=== PATIENT | female | born 1995 | race Caucasian/White ===

== ENCOUNTER 2017-04-19 11:16 | Emergency (ER) | payer BC ==
[~2017-04-19] VITALS: Ht 170.2 cm; Wt 58.4 kg
[2017-04-19 11:20] VITALS: TEMP 36.6; Ht 170.2 cm; Wt 58.4 kg
--- NOTE | 2017-04-19 11:36 | EMERGENCY ROOM VISIT NOTE ---
History First contact with patient: 11:25 Chief Complaint: SHORTNESS OF BREATH Stated Complaint: PURPLE SKIN, SOB Nursing Triage Summary: pt reports being short of breath for 2 months pt noticed over the weekend that "my skin is turning blue and I cant take deep breaths" pt reports bluish color appears around mouth and lips History of Present Illness The patient is a 21 year old female who presents to the Emergency Room via private vehicle with complaints of "purple skin, shortness of breath". The patient states that she has been feeling short of breath for the past 2 months. There is no inciting incident, trauma or other event but does note that she believes it could be related to stress while at school here at [employer]. She states that over the weekend she noted that when she was in a cold the skin around her lips were turning blue and around her mouth. She came here over concern because of the shortness of breath and now the perioral cyanosis. She denies any recent fevers, chills, cough, medical problems, chest pain, heart troubles, history of blood clots. She states that she does take control and recently flew to [facility] last week. Review of Systems A complete 10-point Review of Systems was discussed with the patient, with pertinent positives and negatives listed in the History of Present Illness. All remaining Review of Systems questions can be considered negative unless otherwise specified. Past Medical/Surgical History No pertinent. Family History No pertinent. Social History Smoking Status: Never Smoker Patient is a [employer] student and lives locally. Current/Historical Medications Scheduled Control Pills ( Control Pills), 1 TAB PO DAILY Physical Exam Vital Signs Date Time Temp Pulse Resp B/P (MAP) Pulse Ox O2 Delivery O2 Flow Rate FiO2 04/19/17 16:36 87 18 122/75 98 Room Air 04/19/17 16:20 86 04/19/17 15:27 86 18 129/77 97 Room Air 04/19/17 13:54 84 16 130/87 99 Room Air 04/19/17 12:32 73 16 146/77 100 Room Air 04/19/17 12:22 71 04/19/17 11:47 79 18 146/91 98 Room Air 04/19/17 11:46 97 Room Air 04/19/17 11:20 36.6 77 20 145/89 98 Room Air Physical Exam VITAL SIGNS - Vital signs and nursing notes were reviewed. Stable. Non- tachycardic and is saturating well on room air 98%. GENERAL -21-year-old female appearing her stated age who is in no acute distress. Communicates well with provider and answers questions appropriately. SKIN - Without rashes. There is no purple hue to the skin at this time. Good capillary refill. HEAD - NC/AT. EYES - PERRL with EOMI bilaterally. Sclera anicteric. No hyphema. EARS - No deformities of external structures noted on gross examination bilaterally. No pain elicited with palpation of the tragus bilaterally. External auditory canals without discharge or otorrhea. Tympanic membranes pearly medina without retraction or bulging. No fluid or purulent material visualized behind the TM. Handle of malleus, umbo, cone of light, pars tensa/ flaccid all easily visualized. NOSE - Midline and without cyanosis. No epistaxis or purulent drainage noted. Septum midline without deviation or septal hematoma noted. MOUTH/OROPHARYNX - Without perioral cyanosis. Buccal mucosa pink and moist and without leukoplakia. Tongue midline with equal elevation of palate bilaterally. No tonsillar hypertrophy, erythema, or exudates noted. Fair dentition noted. NECK - Neck with FROM. Supple to palpation. No meningismus. LUNGS - Chest wall symmetric without accessory muscle use, intercostals retractions, or central cyanosis. Normal vesicular breath sounds CTA B/L. No wheezes, rales, or rhonchi appreciated. CARDIAC - RRR with S1/S2. No murmur, rubs, or gallops appreciated. EXTREMITIES - No clubbing or peripheral cyanosis. No pretibial edema present. +3 /5 radial, posterior tibial, and dorsalis pedis pulses palpated throughout. +5/ 5 strength noted in UE/LE bilaterally. NEUROLOGIC - Cranial nerves II through XII grossly intact. PSYCH - A&Ox3 and cooperates fully with examiner. Pt is very pleasant and interacts well with examiner. Medical Decision & Procedures ER Provider Diagnostic Interpretation: CHEST ONE VIEW PORTABLE HISTORY: 21 years-old Female Dyspnea, perioral cyanosis acute dyspnea COMPARISON: None available TECHNIQUE: Portable upright AP view of the chest FINDINGS: Cardiomediastinal and hilar silhouettes are within normal limits. There is no pneumothorax, pleural effusion, focal airspace consolidation or overt pulmonary edema. Bones of the chest appear grossly intact. Partially imaged levoscoliosis of the lumbar spine. IMPRESSION: 1. No acute cardiopulmonary process. 2. Lumbar spine levoscoliosis. The above report was generated using voice recognition software. It may contain grammatical, syntax or spelling errors. Electronically signed by: Cristiano David M.D. 04/19/2017 12:06 PM Dictated Date/Time: 04/19/2017 12:05 PM [~ rep ct add3]] (CHEST FOR PE) ANGIO WITH CT DOSE: 197.17 mGy.cm HISTORY: 21 years-old Female presents with acute shortness of breath with skin discoloration TECHNIQUE: Multiple CTA images of the chest were obtained after the intravenous administration of 92 ml Optiray 320. Coronal and sagittal MIPS were obtained from the axial data set and were submitted for review. A dose lowering technique was utilized adhering to the principles of ALARA. COMPARISON: Chest radiograph of same day. FINDINGS: CTA: There is adequate opacification of the pulmonary arteries to the level of the subsegmental branches without convincing evidence of acute pulmonary embolism. The distal subsegmental branches however are suboptimally evaluated secondary to respiratory motion. The thoracic aorta is normal in both course and caliber without dissection or aneurysm. There is a contrast-filled tubular structure measuring 1.6 x 0.3 x 0.3 cm in greatest dimension extending from the aortic isthmus towards the main pulmonary artery as seen on image 173 series 4, image 57 series 401 and lastly image [address] CHEST: No dominant thyroid nodule is seen. No pathologically adenopathy by CT size criteria. Mild residual thymic tissue of the anterior mediastinum There is no pneumothorax, pleural effusion or focal airspace consolidation. 2 mm noncalcified pulmonary nodule of the right lung apex is statistically benign. Central airways are patent. The imaged upper abdominal structures are normal. The osseous structures appear intact. IMPRESSION: 1. No acute intrathoracic abnormality identified. No acute aortic pathology or evidence of pulmonary thromboembolic disease. 2. 1.6 x 0.3 x 0.3 cm contrast-filled tubular structure extending from the aortic isthmus towards the main pulmonary artery is compatible with a small to moderate-sized patent ductus arteriosus. Cardiology consultation with echocardiogram recommended. The above report was generated using voice recognition software. It may contain grammatical, syntax or spelling errors. Electronically signed by: Cristiano David M.D. 04/19/2017 1:17 PM Dictated Date/Time: 04/19/2017 1:06 PM [~ rep ct add3]] (CHEST FOR PE) ANGIO WITH CT DOSE: 197.17 mGy.cm HISTORY: 21 years-old Female presents with acute shortness of breath with skin discoloration TECHNIQUE: Multiple CTA images of the chest were obtained after the intravenous administration of 92 ml Optiray 320. Coronal and sagittal MIPS were obtained from the axial data set and were submitted for review. A dose lowering technique was utilized adhering to the principles of ALARA. COMPARISON: Chest radiograph of same day. FINDINGS: CTA: There is adequate opacification of the pulmonary arteries to the level of the subsegmental branches without convincing evidence of acute pulmonary embolism. The distal subsegmental branches however are suboptimally evaluated secondary to respiratory motion. The thoracic aorta is normal in both course and caliber without dissection or aneurysm. There is a contrast-filled tubular structure measuring 1.6 x 0.3 x 0.3 cm in greatest dimension extending from the aortic isthmus towards the main pulmonary artery as seen on image 173 series 4, image 57 series 401 and lastly image [address] CHEST: No dominant thyroid nodule is seen. No pathologically adenopathy by CT size criteria. Mild residual thymic tissue of the anterior mediastinum There is no pneumothorax, pleural effusion or focal airspace consolidation. 2 mm noncalcified pulmonary nodule of the right lung apex is statistically benign. Central airways are patent. The imaged upper abdominal structures are normal. The osseous structures appear intact. IMPRESSION: 1. No acute intrathoracic abnormality identified. No acute aortic pathology or evidence of pulmonary thromboembolic disease. 2. 1.6 x 0.3 x 0.3 cm contrast-filled tubular structure extending from the aortic isthmus towards the main pulmonary artery is compatible with a small to moderate-sized patent ductus arteriosus. Cardiology consultation with echocardiogram recommended. The above report was generated using voice recognition software. It may contain grammatical, syntax or spelling errors. Electronically signed by: Cristiano David M.D. 04/19/2017 1:17 PM Dictated Date/Time: 04/19/2017 1:06 PM Interpretation Summary * Name: MARIELY MONCADA Study Date: 04/19/2017 02:09 PM BP: 130/87 mmHg * Patient Location: [facility] HR: 98 * : 1995 (M/d/yyyy) Gender: Female Height: 67 in * Age: 21 yrs Ethnicity: CA Weight: 128 lb * Ordering Physician: Justin Randolph * eferring Physician: Self, Referred * Performed By: Jaelyn Christine RCS * * Reason For Study: DYSPNEA / PERIORAL CYANOSIS / EVAL FOR PDA * BSA: 1.7 m2 * -- Conclusions -- * Left ventricular systolic function is normal. * Normal chamber dimensions without objective evidence of pulmonary hypertension * A patent foramen ovale is present. * Doppler images through the aortic arch and pulmonary artery suggest left to right flow consistent with a patent ductus arteriosus * Shunt fraction was not determined on this study Procedure Details * A complete two-dimensional transthoracic echocardiogram was performed (2D, M-mode, Doppler and color flow Doppler). * A saline contrast injection was performed to assess for cardiac shunting. * The injection was performed through an intravenous line in the left arm. * The attending nurse who injected the saline contrast was KETAN ESQUEDA RN. * A total of 10 cc of agitated saline was given. Left Ventricle * The left ventricle is normal in size. * There is normal left ventricular wall thickness. * Left ventricular systolic function is normal. * Ejection Fraction = 55-60%. * Normal diastolic function * The left ventricular wall motion is normal. Right Ventricle * The right ventricle is normal in size and function. Atria * The left atrial size is normal. * Right atrial size is normal. * Injection of contrast documented an interatrial shunt. * A patent foramen ovale is present. Mitral Valve * The mitral valve anatomy is normal. * There is no mitral regurgitation noted. Tricuspid Valve * The tricuspid valve anatomy is normal. * There is trace tricuspid regurgitation. Aortic Valve * The aortic valve is normal in structure and function. * The aortic valve is trileaflet. * No hemodynamically significant valvular aortic stenosis. * There is no significant aortic regurgitation. Pulmonic Valve * The pulmonic valve is not well seen, but is grossly normal. Great Vessels * Doppler images through the aortic arch and pulmonary artery suggest left to right flow consistent with a patent ductus arteriosus Pericardium/Pleural * There is no pericardial effusion. Great Vessels * Normal inferior vena cava diameter and respiratory variation suggests normal central venous pressure. MMode 2D Measurements and Calculations IVSd 1.1 cm IVSs 1.3 cm LVIDd 3.5 cm LVIDs 2.5 cm LVPWd 1.1 cm LVPWs 1.1 cm IVS/LVPW 1.0 FS 28.6 % EDV(Teich) 51.7 ml ESV(Teich) 22.7 ml EF(Teich) 56.1 % EDV(cubed) 43.7 ml ESV(cubed) 15.9 ml EF(cubed) 63.6 % % IVS thick 11.7 % % LVPW thick -3.46 % LV mass(C)d 126.9 grams LV mass(C)dI 75.9 grams/m\\S\\2 LV mass(C)s 84.7 grams LV mass(C)sI 50.6 grams/m\\S\\2 SV(Teich) 29.0 ml SI(Teich) 17.3 ml/m\\S\\2 SV(cubed) 27.8 ml SI(cubed) 16.6 ml/m\\S\\2 Ao root diam 2.6 cm Ao root area 5.4 cm\\S\\2 LA dimension 1.5 cm LA/Ao 0.58 LVOT diam 1.8 cm LVOT area 2.6 cm\\S\\2 LVAd ap4 26.8 cm\\S\\2 LVLd ap4 7.5 cm EDV(MOD-sp4) 80.7 ml EDV(sp4-el) 81.2 ml LVAs ap4 17.2 cm\\S\\2 LVLs ap4 6.8 cm ESV(MOD-sp4) 37.2 ml ESV(sp4-el) 37.1 ml EF(MOD-sp4) 53.9 % EF(sp4-el) 54.3 % SV(MOD-sp4) 43.5 ml SI(MOD-sp4) 26.0 ml/m\\S\\2 SV(sp4-el) 44.1 ml SI(sp4-el) 26.4 ml/m\\S\\2 Doppler Measurements and Calculations Ao V2 max 158.8 cm/sec Ao max PG 10.1 mmHg Ao max PG (full) 3.7 mmHg ALEXIS(V,A) 2.0 cm\\S\\2 ALEXIS(V,D) 2.0 cm\\S\\2 LV V1 max PG 6.4 mmHg LV V1 max 126.7 cm/sec PA V2 max 119.1 cm/sec PA max PG 5.7 mmHg Laboratory Results 04/19/17 11:32 Red Blood Count 5.13, Mean Corpuscular Volume 90.6, Mean Corpuscular Hemoglobin 31.8, Mean Corpuscular Hemoglobin Concent 35.1, Mean Platelet Volume 9.8, Neutrophils (%) (Auto) 68.6, Lymphocytes (%) (Auto) 24.7, Monocytes (%) (Auto) 4.9, Eosinophils (%) (Auto) 1.3, Basophils (%) (Auto) 0.3, Neutrophils # (Auto) 9.32, Lymphocytes # (Auto) 3.36, Monocytes # (Auto) 0.66, Eosinophils # (Auto) 0.18, Basophils # (Auto) 0.04 04/19/17 11:32 Test 04/19/17 11:32 04/19/17 11:37 04/19/17 11:45 White Blood Count 13.59 K/uL (4.8-10.8) Red Blood Count 5.13 M/uL (4.2-5.4) Hemoglobin 16.3 g/dL (12.0-16.0) Hematocrit 46.5 % (37-47) Mean Corpuscular Volume 90.6 fL (80-100) Mean Corpuscular Hemoglobin 31.8 pg (25-34) Mean Corpuscular Hemoglobin Concent 35.1 g/dl (32-36) Platelet Count 272 K/uL (130-400) Mean Platelet Volume 9.8 fL (7.4-10.4) Neutrophils (%) (Auto) 68.6 % Lymphocytes (%) (Auto) 24.7 % Monocytes (%) (Auto) 4.9 % Eosinophils (%) (Auto) 1.3 % Basophils (%) (Auto) 0.3 % Neutrophils # (Auto) 9.32 K/uL (1.4-6.5) Lymphocytes # (Auto) 3.36 K/uL (1.2-3.4) Monocytes # (Auto) 0.66 K/uL (0.11-0.59) Eosinophils # (Auto) 0.18 K/uL (0-0.5) Basophils # (Auto) 0.04 K/uL (0-0.2) RDW Standard Deviation 42.9 fL (36.4-46.3) RDW Coefficient of Variation 13.0 % (11.5-14.5) Immature Granulocyte % (Auto) 0.2 % Immature Granulocyte # (Auto) 0.03 K/uL (0.00-0.02) Prothrombin Time 10.8 SECONDS (9.0-12.0) Prothromb Time International Ratio 1.0 (0.9-1.1) Activated Partial Thromboplast Time 25.6 SECONDS (21.0-31.0) Partial Thromboplastin Ratio 1.0 Anion Gap 10.0 mmol/L (3-11) Est Creatinine Clear Calc Drug Dose 94.0 ml/min Estimated GFR () 109.6 Estimated GFR (Non- 94.6 BUN/Creatinine Ratio 11.6 (10-20) Calcium Level 9.7 mg/dl (8.5-10.1) Total Bilirubin 0.7 mg/dl (0.2-1) Aspartate Amino Transf (AST/SGOT) 22 U/L (15-37) Alanine Aminotransferase (ALT/SGPT) 27 U/L (12-78) Alkaline Phosphatase 59 U/L (45-117) Troponin I < 0.015 ng/ml (0-0.045) Total Protein 8.7 gm/dl (6.4-8.2) Albumin 4.6 gm/dl (3.4-5.0) Globulin 4.1 gm/dl (2.5-4.0) Albumin/Globulin Ratio 1.1 (0.9-2) Thyroid Stimulating Hormone (TSH) 1.590 uIu/ml (0.300-4.500) Bedside D-Dimer > 450 ng/mlFEU (0-450) Urine Color YELLOW Urine Appearance CLEAR (CLEAR) Urine pH 5.0 (4.5-7.5) Urine Specific [place] 1.026 (1.000-1.030) Urine Protein NEG (NEG) Urine Glucose (UA) NEG (NEG) Urine Ketones NEG (NEG) Urine Occult Blood NEG (NEG) Urine Nitrite NEG (NEG) Urine Bilirubin NEG (NEG) Urine Urobilinogen NEG (NEG) Urine Leukocyte Esterase TRACE (NEG) Urine WBC (Auto) 5-10 /hpf (0-5) Urine RBC (Auto) 5-10 /hpf (0-4) Urine Hyaline Casts (Auto) 1-5 /lpf (0-5) Urine Epithelial Cells (Auto) >30 /lpf (0-5) Urine Bacteria (Auto) NEG (NEG) Urine Test NEG (NEG) Medical Decision Patient was seen in the hospital as above. She presents to us today with dyspnea 2 months as well as perioral protruding/cyanosis since this weekend. This is since she goes out". The chest pain is not worse with exertion. No significant medical history. IV access was initiated, and the above workup was performed. CBC revealed slight leukocytosis of 13.59. Hemoglobin high at 16.3. Coag study normal. D-dimer elevated. Patient metabolic panel reveal no evidence of kidney or liver failure. Protein high at 8.7. TSH normal. Troponin negative. EKG reveals normal sinus rhythm, right axis deviation. Urine reveals trace leukocytes, trace white blood cells, red blood cells and crit at 30 epithelial cells. Urine brings test is negative. Chest x-ray no acute process other than incidental findings. CTA does reveal questionable PDA. I was called by the radiologist who read the CT scan the patient's chest and we discussed the case. There is concern that there is indeed a patent ductus arteriosus identified in her heart. He recommended echocardiogram with cardiology consultation. I did call cardiology, and spoke with Dr. Tejada. He thought that the echocardiogram was a good idea and this was performed. This revealed a patent ductus arteriosus and patent foramen ovale. We discussed the patient case and felt that she was stable for outpatient management with a congenital family centered specialist. She is to follow with her family doctor for referral. I do not suspect any other emergent underlying process. It is important to note that I do not suspect that her perioral cyanosis and dyspnea for many emergent cause. I do not think that they're related to the findings of the heart. I believe that the perioral cyanosis is indeed just temperature change and likely vascular constriction. I believe that the dyspnea related to other etiologies but not suspect any emergent. Patient was educated upon today' s findings, educated upon worrisome symptoms which to return, had questions or purulent discharge, and was discharged home in good condition. In evaluation treatment this patient the following differential diagnoses were entertained: Congenital heart abnormality, FL, PE, bronchitis, pneumonia, pericarditis, among others. Impression Primary Impression: Shortness of breath Additional Impressions: PDA (patent ductus arteriosus) PFO (patent foramen ovale) Departure Information Dispostion Home / Self-Care Condition GOOD Referrals No Doctor, Assigned (PCP) Patient Instructions My [facility] [address] Additional Instructions You have been treated in the Emergency Department your shortness of breath and purple in around the mouth and fingertips. Laboratory results and imaging studies have ruled out any emergent causes for your symptoms which would warrant emergency admission or surgery. For pain control, you can use the following [id number] medicines: - Regular strength (325mg/tab) Tylenol (acetaminophen) 2 tabs every 4-6 hours as needed. Do not exceed 12 tablets in a 24 hour period. Avoid taking more than 3 grams (3000 mg) of Tylenol per day. This includes any other sources of acetaminophen you may take on a regular basis. - Regular strength (200 mg/tab) Advil (ibuprofen) 1-2 tabs every 4-6 hours as needed. Do not exceed a dose of 3200 mg per day. Drink plenty of water and stay well hydrated. As with any trip to the Emergency Department, you should follow-up with your Primary Care Provider from today's visit. I recommend follow-up with the family doctor and subsequently a congenital family centered specialist. Please take the ultrasound findings as well as the x-ray and CAT scan to your family doctor. CHEST ONE VIEW PORTABLE HISTORY: 21 years-old Female Dyspnea, perioral cyanosis acute dyspnea COMPARISON: None available TECHNIQUE: Portable upright AP view of the chest FINDINGS: Cardiomediastinal and hilar silhouettes are within normal limits. There is no pneumothorax, pleural effusion, focal airspace consolidation or overt pulmonary edema. Bones of the chest appear grossly intact. Partially imaged levoscoliosis of the lumbar spine. IMPRESSION: 1. No acute cardiopulmonary process. 2. Lumbar spine levoscoliosis. The above report was generated using voice recognition software. It may contain grammatical, syntax or spelling errors. Electronically signed by: Cristiano David M.D. 04/19/2017 12:06 PM Dictated Date/Time: 04/19/2017 12:05 PM [~ rep ct add3]] (CHEST FOR PE) ANGIO WITH CT DOSE: 197.17 mGy.cm HISTORY: 21 years-old Female presents with acute shortness of breath with skin discoloration TECHNIQUE: Multiple CTA images of the chest were obtained after the intravenous administration of 92 ml Optiray 320. Coronal and sagittal MIPS were obtained from the axial data set and were submitted for review. A dose lowering technique was utilized adhering to the principles of ALARA. COMPARISON: Chest radiograph of same day. FINDINGS: CTA: There is adequate opacification of the pulmonary arteries to the level of the subsegmental branches without convincing evidence of acute pulmonary embolism. The distal subsegmental branches however are suboptimally evaluated secondary to respiratory motion. The thoracic aorta is normal in both course and caliber without dissection or aneurysm. There is a contrast-filled tubular structure measuring 1.6 x 0.3 x 0.3 cm in greatest dimension extending from the aortic isthmus towards the main pulmonary artery as seen on image 173 series 4, image 57 series 401 and lastly image [address] CHEST: No dominant thyroid nodule is seen. No pathologically adenopathy by CT size criteria. Mild residual thymic tissue of the anterior mediastinum There is no pneumothorax, pleural effusion or focal airspace consolidation. 2 mm noncalcified pulmonary nodule of the right lung apex is statistically benign. Central airways are patent. The imaged upper abdominal structures are normal. The osseous structures appear intact. IMPRESSION: 1. No acute intrathoracic abnormality identified. No acute aortic pathology or evidence of pulmonary thromboembolic disease. 2. 1.6 x 0.3 x 0.3 cm contrast-filled tubular structure extending from the aortic isthmus towards the main pulmonary artery is compatible with a small to moderate-sized patent ductus arteriosus. Cardiology consultation with echocardiogram recommended. The above report was generated using voice recognition software. It may contain grammatical, syntax or spelling errors. Electronically signed by: Cristiano David M.D. 04/19/2017 1:17 PM Dictated Date/Time: 04/19/2017 1:06 PM Interpretation Summary * Name: MARIELY MONCADA Study Date: 04/19/2017 02:09 PM BP: 130/87 mmHg * Patient Location: [facility] HR: 98 * : 1995 (M/d/yyyy) Gender: Female Height: 67 in * Age: 21 yrs Ethnicity: CA Weight: 128 lb * Ordering Physician: Justin Randolph * eferring Physician: Self, Referred * Performed By: Jaelyn Christine RCS * * Reason For Study: DYSPNEA / PERIORAL CYANOSIS / EVAL FOR PDA * BSA: 1.7 m2 * -- Conclusions -- * Left ventricular systolic function is normal. * Normal chamber dimensions without objective evidence of pulmonary hypertension * A patent foramen ovale is present. * Doppler images through the aortic arch and pulmonary artery suggest left to right flow consistent with a patent ductus arteriosus * Shunt fraction was not determined on this study Procedure Details * A complete two-dimensional transthoracic echocardiogram was performed (2D, M-mode, Doppler and color flow Doppler). * A saline contrast injection was performed to assess for cardiac shunting. * The injection was performed through an intravenous line in the left arm. * The attending nurse who injected the saline contrast was KETAN ESQUEDA RN. * A total of 10 cc of agitated saline was given. Left Ventricle * The left ventricle is normal in size. * There is normal left ventricular wall thickness. * Left ventricular systolic function is normal. * Ejection Fraction = 55-60%. * Normal diastolic function * The left ventricular wall motion is normal. Right Ventricle * The right ventricle is normal in size and function. Atria * The left atrial size is normal. * Right atrial size is normal. * Injection of contrast documented an interatrial shunt. * A patent foramen ovale is present. Mitral Valve * The mitral valve anatomy is normal. * There is no mitral regurgitation noted. Tricuspid Valve * The tricuspid valve anatomy is normal. * There is trace tricuspid regurgitation. Aortic Valve * The aortic valve is normal in structure and function. * The aortic valve is trileaflet. * No hemodynamically significant valvular aortic stenosis. * There is no significant aortic regurgitation. Pulmonic Valve * The pulmonic valve is not well seen, but is grossly normal. Great Vessels * Doppler images through the aortic arch and pulmonary artery suggest left to right flow consistent with a patent ductus arteriosus Pericardium/Pleural * There is no pericardial effusion. Great Vessels * Normal inferior vena cava diameter and respiratory variation suggests normal central venous pressure. MMode 2D Measurements and Calculations IVSd 1.1 cm IVSs 1.3 cm LVIDd 3.5 cm LVIDs 2.5 cm LVPWd 1.1 cm LVPWs 1.1 cm IVS/LVPW 1.0 FS 28.6 % EDV(Teich) 51.7 ml ESV(Teich) 22.7 ml EF(Teich) 56.1 % EDV(cubed) 43.7 ml ESV(cubed) 15.9 ml EF(cubed) 63.6 % % IVS thick 11.7 % % LVPW thick -3.46 % LV mass(C)d 126.9 grams LV mass(C)dI 75.9 grams/m\\S\\2 LV mass(C)s 84.7 grams LV mass(C)sI 50.6 grams/m\\S\\2 SV(Teich) 29.0 ml SI(Teich) 17.3 ml/m\\S\\2 SV(cubed) 27.8 ml SI(cubed) 16.6 ml/m\\S\\2 Ao root diam 2.6 cm Ao root area 5.4 cm\\S\\2 LA dimension 1.5 cm LA/Ao 0.58 LVOT diam 1.8 cm LVOT area 2.6 cm\\S\\2 LVAd ap4 26.8 cm\\S\\2 LVLd ap4 7.5 cm EDV(MOD-sp4) 80.7 ml EDV(sp4-el) 81.2 ml LVAs ap4 17.2 cm\\S\\2 LVLs ap4 6.8 cm ESV(MOD-sp4) 37.2 ml ESV(sp4-el) 37.1 ml EF(MOD-sp4) 53.9 % EF(sp4-el) 54.3 % SV(MOD-sp4) 43.5 ml SI(MOD-sp4) 26.0 ml/m\\S\\2 SV(sp4-el) 44.1 ml SI(sp4-el) 26.4 ml/m\\S\\2 Doppler Measurements and Calculations Ao V2 max 158.8 cm/sec Ao max PG 10.1 mmHg Ao max PG (full) 3.7 mmHg ALEXIS(V,A) 2.0 cm\\S\\2 ALEXIS(V,D) 2.0 cm\\S\\2 LV V1 max PG 6.4 mmHg LV V1 max 126.7 cm/sec PA V2 max 119.1 cm/sec PA max PG 5.7 mmHg Problem Qualifiers
[2017-04-19 11:46] VITALS: O2SAT 97
[2017-04-19 11:49] LABS: BASO % 0.3 %; BASO ABS # 0.04 K/uL (0-0.2); COMPLETE YES; EOS % 1.3 %; HEMATOCRIT 46.5 % (37-47); IG% 0.2 %; LYMPH % 24.7 %; LYMPH ABS # 3.36 K/uL (1.2-3.4); MEAN CELL VOLUME 90.6 fL (80-100); MEAN CORPUSCULAR HEMOGLOBIN 31.8 pg (25-34); MEAN CORPUSCULAR HGB CONC 35.1 g/dl (32-36); MEAN PLATELET VOLUME 9.8 fL (7.4-10.4); MONO % 4.9 %; NEUT % 68.6 %; PLATELET COUNT 272 K/uL (130-400); RED BLOOD COUNT 5.13 M/uL (4.2-5.4); WHITE BLOOD COUNT 13.59 K/uL (4.8-10.8)
[2017-04-19 11:59] LABS: PROTHROMBIN TIME (PATIENT) 10.8 SECONDS (9.0-12.0)
[2017-04-19 12:00] LABS: URINE APPEARANCE CLEAR (CLEAR); URINE BILIRUBIN NEG (NEG); URINE COLOR YELLOW; URINE EPITHELIAL CELL AUTO >30 /lpf (0-5); URINE NITRITE NEG (NEG); URINE SPECIFIC GRAVITY 1.026 (1.000-1.030); UROBILINOGEN NEG (NEG); ZZUR CULT IF INDIC CLEAN CATCH NO
[2017-04-19 12:04] LABS: MANUAL MICROSCOPIC REQUIRED? NO; REVIEW REQ? NO
--- NOTE | 2017-04-19 12:08 | DIAGNOSTIC IMAGING REPORT ---
CHEST ONE VIEW PORTABLE HISTORY: 21 years-old Female Dyspnea, perioral cyanosis acute dyspnea COMPARISON: None available TECHNIQUE: Portable upright AP view of the chest FINDINGS: Cardiomediastinal and hilar silhouettes are within normal limits. There is no pneumothorax, pleural effusion, focal airspace consolidation or overt pulmonary edema. Bones of the chest appear grossly intact. Partially imaged levoscoliosis of the lumbar spine. IMPRESSION: 1. No acute cardiopulmonary process. 2. Lumbar spine levoscoliosis. The above report was generated using voice recognition software. It may contain grammatical, syntax or spelling errors. Electronically signed by: Cristiano David M.D. 04/19/2017 12:06 PM Dictated Date/Time: 04/19/2017 12:05 PM
[2017-04-19] MEDS ORDERED: BCPILLS PO (12:14)
[2017-04-19 12:33] LABS: ALT/SGPT 27 U/L (12-78); AST/SGOT 22 U/L (15-37); BLOOD UREA NITROGEN 10 mg/dl (7-18); BUN/CREATININE RATIO 11.6 (10-20); CALCIUM 9.7 mg/dl (8.5-10.1); CARBON DIOXIDE 26 mmol/L (21-32); CHLORIDE 102 mmol/L (98-107); CREATININE 0.88 mg/dl (0.60-1.20); GLUCOSE 89 mg/dl (70-99); POTASSIUM 3.8 mmol/L (3.5-5.1); SODIUM 138 mmol/L (136-145)
[2017-04-19 12:44] LABS: ALB/GLOB RATIO 1.1 (0.9-2); ALKALINE PHOSPHATASE 59 U/L (45-117)
[2017-04-19] MEDS ORDERED: OPTIRAY 320 IV PRN (12:45)
--- NOTE | 2017-04-19 13:18 | DIAGNOSTIC IMAGING REPORT ---
ADDENDUM Contrast-filled tubular structure extends from the undersurface of the aortic isthmus towards the proximal left pulmonary artery. Electronically signed by: Cristiano David M.D. 04/19/2017 11:17 PM Dictated Date/Time: 04/19/2017 11:16 PM ORIGINAL REPORT (CHEST FOR PE) ANGIO WITH CT DOSE: 197.17 mGy.cm HISTORY: 21 years-old Female presents with acute shortness of breath with skin discoloration TECHNIQUE: Multiple CTA images of the chest were obtained after the intravenous administration of 92 ml Optiray 320. Coronal and sagittal MIPS were obtained from the axial data set and were submitted for review. A dose lowering technique was utilized adhering to the principles of ALARA. COMPARISON: Chest radiograph of same day. FINDINGS: CTA: There is adequate opacification of the pulmonary arteries to the level of the subsegmental branches without convincing evidence of acute pulmonary embolism. The distal subsegmental branches however are suboptimally evaluated secondary to respiratory motion. The thoracic aorta is normal in both course and caliber without dissection or aneurysm. There is a contrast-filled tubular structure measuring 1.6 x 0.3 x 0.3 cm in greatest dimension extending from the aortic isthmus towards the main pulmonary artery as seen on image 173 series 4, image 57 series 401 and lastly image [address] CHEST: No dominant thyroid nodule is seen. No pathologically adenopathy by CT size criteria. Mild residual thymic tissue of the anterior mediastinum There is no pneumothorax, pleural effusion or focal airspace consolidation. 2 mm noncalcified pulmonary nodule of the right lung apex is statistically benign. Central airways are patent. The imaged upper abdominal structures are normal. The osseous structures appear intact. IMPRESSION: 1. No acute intrathoracic abnormality identified. No acute aortic pathology or evidence of pulmonary thromboembolic disease. 2. 1.6 x 0.3 x 0.3 cm contrast-filled tubular structure extending from the aortic isthmus towards the main pulmonary artery is compatible with a small to moderate-sized patent ductus arteriosus. Cardiology consultation with echocardiogram recommended. The above report was generated using voice recognition software. It may contain grammatical, syntax or spelling errors. Electronically signed by: Cristiano David M.D. 04/19/2017 1:17 PM Dictated Date/Time: 04/19/2017 1:06 PM
--- NOTE | 2017-04-19 16:16 | ECHOCARDIOGRAM REPORT ---
*NOTICE TO RECEIVING LIBERTARIAN AGENCY This information is strictly Confidential and protected under [place] law. [place] law prohibits you from making any further disclosure of this information unless further disclosure is expressly permitted by the written consent of the person to whom it pertains or is authorized by law. A general authorization for the release of medical or other information is not sufficient for this purpose. Hospital accepts no responsibility if the information is made available to any other person, INCLUDING THE PATIENT. Interpretation Summary * Name: MARIELY MONCADA Study Date: 04/19/2017 02:09 PM BP: 130/87 mmHg * Patient Location: [facility] HR: 98 * : 1995 (M/d/yyyy) Gender: Female Height: 67 in * Age: 21 yrs Ethnicity: CA Weight: 128 lb * Ordering Physician: Justin Randolph * eferring Physician: Self, Referred * Performed By: Jaelyn Christine RCS * * Reason For Study: DYSPNEA / PERIORAL CYANOSIS / EVAL FOR PDA * BSA: 1.7 m2 * -- Conclusions -- * Left ventricular systolic function is normal. * Normal chamber dimensions without objective evidence of pulmonary hypertension * A patent foramen ovale is present. * Doppler images through the aortic arch and pulmonary artery suggest left to right flow consistent with a patent ductus arteriosus * Shunt fraction was not determined on this study Procedure Details * A complete two-dimensional transthoracic echocardiogram was performed (2D, M-mode, Doppler and color flow Doppler). * A saline contrast injection was performed to assess for cardiac shunting. * The injection was performed through an intravenous line in the left arm. * The attending nurse who injected the saline contrast was KETAN ESQUEDA RN. * A total of 10 cc of agitated saline was given. Left Ventricle * The left ventricle is normal in size. * There is normal left ventricular wall thickness. * Left ventricular systolic function is normal. * Ejection Fraction = 55-60%. * Normal diastolic function * The left ventricular wall motion is normal. Right Ventricle * The right ventricle is normal in size and function. Atria * The left atrial size is normal. * Right atrial size is normal. * Injection of contrast documented an interatrial shunt. * A patent foramen ovale is present. Mitral Valve * The mitral valve anatomy is normal. * There is no mitral regurgitation noted. Tricuspid Valve * The tricuspid valve anatomy is normal. * There is trace tricuspid regurgitation. Aortic Valve * The aortic valve is normal in structure and function. * The aortic valve is trileaflet. * No hemodynamically significant valvular aortic stenosis. * There is no significant aortic regurgitation. Pulmonic Valve * The pulmonic valve is not well seen, but is grossly normal. Great Vessels * Doppler images through the aortic arch and pulmonary artery suggest left to right flow consistent with a patent ductus arteriosus Pericardium/Pleural * There is no pericardial effusion. Great Vessels * Normal inferior vena cava diameter and respiratory variation suggests normal central venous pressure. MMode 2D Measurements and Calculations IVSd 1.1 cm IVSs 1.3 cm LVIDd 3.5 cm LVIDs 2.5 cm LVPWd 1.1 cm LVPWs 1.1 cm IVS/LVPW 1.0 FS 28.6 % EDV(Teich) 51.7 ml ESV(Teich) 22.7 ml EF(Teich) 56.1 % EDV(cubed) 43.7 ml ESV(cubed) 15.9 ml EF(cubed) 63.6 % % IVS thick 11.7 % % LVPW thick -3.46 % LV mass(C)d 126.9 grams LV mass(C)dI 75.9 grams/m\S\2 LV mass(C)s 84.7 grams LV mass(C)sI 50.6 grams/m\S\2 SV(Teich) 29.0 ml SI(Teich) 17.3 ml/m\S\2 SV(cubed) 27.8 ml SI(cubed) 16.6 ml/m\S\2 Ao root diam 2.6 cm Ao root area 5.4 cm\S\2 LA dimension 1.5 cm LA/Ao 0.58 LVOT diam 1.8 cm LVOT area 2.6 cm\S\2 LVAd ap4 26.8 cm\S\2 LVLd ap4 7.5 cm EDV(MOD-sp4) 80.7 ml EDV(sp4-el) 81.2 ml LVAs ap4 17.2 cm\S\2 LVLs ap4 6.8 cm ESV(MOD-sp4) 37.2 ml ESV(sp4-el) 37.1 ml EF(MOD-sp4) 53.9 % EF(sp4-el) 54.3 % SV(MOD-sp4) 43.5 ml SI(MOD-sp4) 26.0 ml/m\S\2 SV(sp4-el) 44.1 ml SI(sp4-el) 26.4 ml/m\S\2 Doppler Measurements and Calculations Ao V2 max 158.8 cm/sec Ao max PG 10.1 mmHg Ao max PG (full) 3.7 mmHg ALEXIS(V,A) 2.0 cm\S\2 ALEXIS(V,D) 2.0 cm\S\2 LV V1 max PG 6.4 mmHg LV V1 max 126.7 cm/sec PA V2 max 119.1 cm/sec PA max PG 5.7 mmHg
[2017-04-19 16:36] VITALS: BP 122/75; PULSE 87; O2SAT 98
== END 2017-04-19 17:05 | disposition home or self-care (01) ==
LOC: C.EDB 11:19 → C.EDA 17:05
DX: R06.02 Shortness of breath (principal); Q25.0 Patent ductus arteriosus; Q21.1 Atrial septal defect; Z79.3 Long term (current) use of hormonal contraceptives